=== PATIENT | male | born 1980 | race Caucasian/White ===

== ENCOUNTER 2024-08-28 11:53 | Emergency (ER) | payer SELFPAY ==
[2024-08-28] MEDS ORDERED: Sodium Chloride 0.9% 10 ML Syringe FLUSH PRN (12:23)
[2024-08-28 12:53] LABS: BASOPHILS ABSOLUTE AUTO 0.02 K/uL (0.00-0.20); BASOPHILS PERCENT AUTO 0.2 % (0.0-1.0); EOSINOPHILS ABSOLUTE AUTO 0.05 K/uL (0.00-0.45); EOSINOPHILS PERCENT AUTO 0.6 % (0.0-6.0); HEMATOCRIT 44.3 % (42.0-52.0); HEMOGLOBIN 14.9 g/dL (14.0-18.0); IMMATURE GRAN ABSOLUTE AUTO 0.02 K/uL (0.00-0.05); IMMATURE GRAN PERCENT AUTO 0.2 % (0.0-0.4); LYMPHOCYTES ABSOLUTE AUTO 0.75 K/uL (1.00-4.80); LYMPHOCYTES PERCENT AUTO 9.1 % (24.0-44.0); MEAN CORPUSCULAR HEMOGLOBIN 28.5 pg (28.0-32.0); MEAN CORPUSCULAR HGB CONC 33.6 g/dL (32.0-36.0); MEAN CORPUSCULAR VOLUME 84.9 fL (83.0-99.0); MEAN PLATELET VOLUME 10.4 fL (9.4-12.4); MONOCYTES ABSOLUTE AUTO 0.54 K/uL (0.00-0.80); MONOCYTES PERCENT AUTO 6.6 % (0.0-8.0); NEUTROPHILS ABSOLUTE AUTO 6.85 K/uL (1.80-7.70); NEUTROPHILS PERCENT AUTO 83.3 % (41.0-71.0); PLATELET COUNT,PLT 215 K/uL (150-400); RED BLOOD CELL COUNT 5.22 M/uL (4.52-5.90); WHITE BLOOD CELL COUNT,WBC 8.23 K/uL (3.9-11.3)
[2024-08-28] MEDS: Sodium Chloride 0.9% 1,000 ML IV ONE ×2 (12:54→17:43)
[2024-08-28] MEDS: Pantoprazole 40 MG in Sodium Chloride 0.9% 10 ML IVPUSH ONE (12:54)
[2024-08-28] MEDS: Ondansetron 4 MG/2 ML SDV IVPUSH ONE (12:54)
[2024-08-28] MEDS: Ketorolac 30 MG/ML SDV IVPUSH ONE (12:54)
[2024-08-28 13:30] LABS: CARBON DIOXIDE,CO2 25.1 mmol/L (21.0-32.0); EST CRCL DRUG DOSING (CG) 121.87 mL/min; MAGNESIUM 1.8 mg/dL (1.8-2.4); POTASSIUM,K 4.1 mmol/L (3.5-5.1); PROTEIN TOTAL,TP 8.1 g/dL (6.4-8.2)
[2024-08-28] MEDS ORDERED: Naloxone 0.4 MG/ML SDV IVPUSH PRN ×3 (13:44→16:12)
[2024-08-28] MEDS: HYDROmorphone 1 MG/ML Syringe IVPUSH ONE ×2 (13:56→16:18)
[2024-08-28] MEDS: fentaNYL 100 MCG/2 ML SDV IVPUSH ONE (16:22)
== END 2024-08-28 18:00 ==
LOC: MW.ED 11:53
DX: K80.70 Calculus of gallbladder and bile duct without cholecystitis without obstruction (principal); K85.10 Biliary acute pancreatitis without necrosis or infection; Z79.01 Long term (current) use of anticoagulants
CPT/HCPCS: 36415; 71045; 76705; 80053; 82248; 83690; 83735; 84484; 85025; 93005; 96361; 96374; 96375; 96376; 99285; J1171; J1885; J2405; J2470; J7030